=== PATIENT | male | born 2000 | race Caucasian/White ===

== ENCOUNTER 2020-05-19 14:56 | Emergency (ER) | payer OTHER ==
[~2020-05-19] VITALS: Ht 175.3 cm; Wt 95.4 kg
[2020-05-19 15:17] VITALS: BP 109/67; Ht 175.3 cm; Wt 95.4 kg
== END 2020-05-19 18:12 | disposition home or self-care (01) ==
LOC: ED 14:56
DX: N45.1 Epididymitis (principal)
CPT/HCPCS: 87491; 87591